=== PATIENT | male | born 1965 | race Caucasian/White ===

== ENCOUNTER 2024-01-31 17:22 | Inpatient (IN) | payer MEDICAID ==
[~2024-01-31] VITALS: Ht 185.4 cm; Wt 65.9 kg
[~2024-01-31 17:22] MED LIST: HYDR-4383 PO; rocuronium bromide 100mg/10ml (10mg/ml) injection IV ONE
[2024-01-31] MEDS: rocuronium 10mg/ml inj IV ONE (17:30)
[2024-01-31] MEDS: etomidate 2mg/ml inj. IV ONE (17:30)
[2024-01-31] MEDS ORDERED: midazolam 100mg in NS 100ml 100 ML IV SCH (17:35)
[2024-01-31 17:37] LABS: BASOPHILS # (AUTO) 0.1 X10'3 (0-0.2); BASOPHILS % (AUTO) 0.5 % (0-1); EOSINOPHILS # (AUTO) 0.2 X10'3 (0-0.9); EOSINOPHILS % (AUTO) 1.3 % (0-6); HEMATOCRIT 30.6 % (42.0-52.0); HEMOGLOBIN 9.5 g/dl (14.0-17.9); LYMPHOCYTES # (AUTO) 5.2 X10'3 (1.1-4.8); MEAN CORPUSCULAR HEMOGLOBIN 29.8 PG (27.0-31.0); MONOCYTES # (AUTO) 0.8 X10'3 (0-0.9); MONOCYTES % (AUTO) 6.2 % (2-12); NEUTROPHILS # (AUTO) 7.1 X10'3 (1.8-7.7); PLATELET COUNT 288 X10'3 (140-440); RED BLOOD COUNT 3.19 X10'6 (4.70-6.10); RED CELL DISTRIBUTION WIDTH 14.1 % (11.5-14.5); WHITE BLOOD COUNT 13.4 X10'3 (4.5-11.0)
[2024-01-31] MEDS ORDERED: MIDAZOLAM IN NACL,ISO-OSMOT/PF 100 ML IV SCH (17:43)
[2024-01-31] MEDS: normal saline 1000ML IV soln IVB ONE (17:50)
[2024-01-31] MEDS: MIDAZOLAM IN NACL,ISO-OSMOT/PF 100 ML IV SCH (17:51)
[2024-01-31 17:53] VITALS: BP 172/86; PULSE 123; RESP 17; O2SAT 99
[2024-01-31] MEDS: pantoprazole 40 MG vial IV ONE (17:56)
[2024-01-31 18:00] LABS: ALBUMIN 2.4 G/DL (3.4-5.0); ANION GAP 26 (8-16); BLOOD UREA NITROGEN 43 MG/DL (7-18); BUN/CREATININE RATIO 21.7 (10.0-20.0); CALCIUM 8.7 MG/DL (8.5-10.1); CHLORIDE 101 MMOL/L (99-107); CREATININE 1.98 MG/DL (0.60-1.10); GLUCOSE 285 MG/DL (70-104); POTASSIUM 3.4 MMOL/L (3.5-5.1); PRO BRAIN NATRIURETIC PEPTIDE 93 PG/ML (0-125); SODIUM 142 MMOL/L (135-145); eCRCL 43 ML/MIN; eGFR 35 ML/MIN
[2024-01-31 18:01] LABS: APTT 31 SECONDS (22-32); INR 1.3 INR; TOTAL CELLS COUNTED 100
[2024-01-31 18:02] LABS: BURR CELLS 1+; PLATELET ESTIMATE NORMAL
[2024-01-31 18:10] LABS: ABG BASE EXCESS -23.6 mmol/L (-2.0-2.0); ABG HCO3 8.7 mmol/L (22.0-26.0); ABG OXYGEN SATURATION 98.1 % (94-97); ABG PCO2 (T) 49.1 mmHg (35.0-48.0); ABG PH (T) 6.862 (7.340-7.440); ABG PO2 (T) 215.5 mmHg (75.0-100.0); ALLEN'S TEST POSITIVE; FCOHb 0.2 % (0.0-3.9); FHHb 1.9 % (0.0-5.0); FMetHb 0.7 % (0.0-1.5); FO2Hb 97.2 % (94-97); MODE VENT - PRVC; PATIENT TEMPERATURE 36.2; PEEP 5 cm H2O; RESPIRATORY RATE 18 b/min; TIDAL VOLUME 450 mL; TOTAL HEMOGLOBIN 8.2 G/dl (14.0-17.9)
[2024-01-31] MEDS ORDERED: propofol 1000mg/100ml bottle 100 ML IV PRN (18:10)
[2024-01-31 18:12] LABS: BILIRUBIN,URINE NEGATIVE (Neg); CLARITY,URINE CLOUDY (Clear); COLOR,URINE AMBER (Yellow); GLUCOSE, URINE NEGATIVE (Neg); KETONES,URINE NEGATIVE (Neg); LEUKOCYTE ESTERASE ,URINE NEGATIVE (Neg); NITRITES, URINE NEGATIVE (Neg); OCCULT BLOOD,URINE LARGE (Neg); PROTEIN,URINE TRACE mg/dl (Neg); UROBILINOGEN,URINE 0.2 E.U/dL (0.2-1.0)
[2024-01-31] MEDS: propofol 1000mg/100ml bottle 100 ML IV PRN (18:12)
[2024-01-31] MEDS ORDERED: iohexol 350MG/ML 100ml bottle IV ONE (18:20)
[2024-01-31 18:21] LABS: UA COLLECTION TYPE NON-SPECIFIED
[2024-01-31 18:29] LABS: SQUAMOUS EPITHELIAL CELL,UR FEW /LPF (FEW)
[2024-01-31 18:30] LABS: RBC,URINE TNTC /HPF (0-2)
[2024-01-31 18:32] LABS: BACTERIA,URINE FEW /HPF (Neg); WBC,URINE 0-4 /HPF (0-4)
[2024-01-31 18:40] LABS: URINE AMPHETAMINE SCREEN POSITIVE (Neg); URINE BARBITUATE SCREEN NEGATIVE (Neg); URINE BENZODIAZEPINES SCREEN NEGATIVE (Neg); URINE CANNABINOID SCREEN NEGATIVE (Neg); URINE COCAINE SCREEN NEGATIVE (Neg); URINE METHADONE SCREEN NEGATIVE (Neg); URINE OPIATE SCREEN NEGATIVE (Neg); URINE PHENCYCLIDINE SCREEN NEGATIVE (Neg)
[2024-01-31] MEDS ORDERED: pantoprazole 40 MG vial IV ONE (18:40)
[2024-01-31] MEDS: normal saline 1000ML IV soln IV ONE (18:40)
[2024-01-31 19:21] VITALS: BP 124/66; PULSE 131; RESP 22; O2SAT 98
[2024-01-31] MEDS: sodium bicarbonate (8.4%) 1 mEq/ml syringe IV ONE (19:27)
[2024-01-31] MEDS: fentaNYL/PF 50MCG/1 ML 2ML syringe IV PRN (19:32)
[2024-01-31 19:46] LABS: ALANINE AMINOTRANSFERASE 79 U/L (12-78); ALBUMIN 2.2 G/DL (3.4-5.0); ALBUMIN/GLOBULIN RATIO 0.9 (1.1-1.5); ALKALINE PHOSPHATASE 82 IU/L (46-116); ANION GAP 13 (8-16); ASPARTATE AMINO TRANSFERASE 89 U/L (10-37); BILIRUBIN,TOTAL 0.3 MG/DL (0.1-1.0); BLOOD UREA NITROGEN 43 MG/DL (7-18); BUN/CREATININE RATIO 22.6 (10.0-20.0); CALCIUM 7.2 MG/DL (8.5-10.1); CHLORIDE 102 MMOL/L (99-107); GLUCOSE 283 MG/DL (70-104); POTASSIUM 3.5 MMOL/L (3.5-5.1); SODIUM 138 MMOL/L (135-145); TOTAL CARBON DIOXIDE 23.4 MMOL/L (24-32); TOTAL PROTEIN 4.6 G/DL (6.4-8.2); eCRCL 45 ML/MIN; eGFR 37 ML/MIN
[2024-01-31 19:49] LABS: LIPASE 22 U/L (16-77)
[2024-01-31] MEDS: NORepinephrine 8mg/ 250ml NS 250 ML IV SCH (20:25)
[2024-01-31 21:02] VITALS: BP 157/100; PULSE 92; RESP 21; O2SAT 100
[2024-01-31] MEDS: octreotide inj. 1,250 MCG in normal saline 250ml IV soln 243.75 ML IV ONE (21:06)
[2024-01-31 21:07] LABS: BASOPHILS # (AUTO) 0.2 X10'3 (0-0.2); EOSINOPHILS # (AUTO) 0.1 X10'3 (0-0.9); EOSINOPHILS % (AUTO) 0.4 % (0-6); HEMATOCRIT 26.7 % (42.0-52.0); HEMOGLOBIN 8.7 g/dl (14.0-17.9); LYMPHOCYTES # (AUTO) 1.8 X10'3 (1.1-4.8); LYMPHOCYTES % (AUTO) 8.6 % (21-51); MEAN CORPUSCULAR HEMOGLOBIN 29.7 PG (27.0-31.0); MEAN CORPUSCULAR HGB CONC 32.8 g/dL (33.0-36.5); MEAN CORPUSCULAR VOLUME 90.5 FL (78-98); MEAN PLATELET VOLUME 8.2 FL (7.4-10.4); MONOCYTES # (AUTO) 0.3 X10'3 (0-0.9); MONOCYTES % (AUTO) 1.4 % (2-12); NEUTROPHILS # (AUTO) 18.7 X10'3 (1.8-7.7); NEUTROPHILS % (AUTO) 88.6 % (42-75); PLATELET COUNT 305 X10'3 (140-440); RED BLOOD COUNT 2.94 X10'6 (4.70-6.10); RED CELL DISTRIBUTION WIDTH 13.4 % (11.5-14.5); WHITE BLOOD COUNT 21.1 X10'3 (4.5-11.0)
[2024-01-31] MEDS: CefTRIAXone/D5W-Rocephin 1gm 50 ML IV ONE (21:08)
[2024-01-31 23:13] VITALS: BP 99/65; PULSE 93; RESP 22; O2SAT 99
[2024-01-31 23:45] LABS: BASOPHILS % (AUTO) 0.1 % (0-1); EOSINOPHILS % (AUTO) 0.1 % (0-6); HEMATOCRIT 34.9 % (42.0-52.0); HEMOGLOBIN 11.6 g/dl (14.0-17.9); LYMPHOCYTES # (AUTO) 1.7 X10'3 (1.1-4.8); LYMPHOCYTES % (AUTO) 6.7 % (21-51); MEAN CORPUSCULAR HEMOGLOBIN 29.1 PG (27.0-31.0); MEAN CORPUSCULAR HGB CONC 33.2 g/dL (33.0-36.5); MEAN CORPUSCULAR VOLUME 87.8 FL (78-98); MEAN PLATELET VOLUME 7.5 FL (7.4-10.4); MONOCYTES # (AUTO) 2.1 X10'3 (0-0.9); MONOCYTES % (AUTO) 8.3 % (2-12); NEUTROPHILS # (AUTO) 21.8 X10'3 (1.8-7.7); NEUTROPHILS % (AUTO) 84.8 % (42-75); PLATELET COUNT 225 X10'3 (140-440); RED BLOOD COUNT 3.97 X10'6 (4.70-6.10); RED CELL DISTRIBUTION WIDTH 13.8 % (11.5-14.5)
[2024-01-31 23:48] LABS: WHITE BLOOD COUNT 25.7 X10'3 (4.5-11.0)
[2024-02-01] VITALS (33 sets, daily range): BP systolic 93–121; BP diastolic 48–75; PULSE 75–92; RESP 7–20; O2SAT 96–100
[2024-02-01 00:14] LABS: TOTAL CELLS COUNTED 100
[2024-02-01 00:16] LABS: PLATELET ESTIMATE NORMAL
[2024-02-01 00:17] LABS: BURR CELLS FEW
[2024-02-01 02:02] LABS: BASOPHILS % (AUTO) 0.1 % (0-1); EOSINOPHILS % (AUTO) 0.1 % (0-6); HEMATOCRIT 39.1 % (42.0-52.0); HEMOGLOBIN 12.7 g/dl (14.0-17.9); LYMPHOCYTES # (AUTO) 2.3 X10'3 (1.1-4.8); MEAN CORPUSCULAR HEMOGLOBIN 29.3 PG (27.0-31.0); MEAN CORPUSCULAR HGB CONC 32.5 g/dL (33.0-36.5); MEAN CORPUSCULAR VOLUME 90.2 FL (78-98); MEAN PLATELET VOLUME 7.4 FL (7.4-10.4); MONOCYTES # (AUTO) 2.1 X10'3 (0-0.9); MONOCYTES % (AUTO) 7.3 % (2-12); NEUTROPHILS # (AUTO) 24.1 X10'3 (1.8-7.7); NEUTROPHILS % (AUTO) 84.5 % (42-75); PLATELET COUNT 209 X10'3 (140-440); RED BLOOD COUNT 4.33 X10'6 (4.70-6.10); RED CELL DISTRIBUTION WIDTH 14.4 % (11.5-14.5)
[2024-02-01 02:06] LABS: WHITE BLOOD COUNT 28.5 X10'3 (4.5-11.0)
[2024-02-01] MEDS ORDERED: ondansetron/PF 4mg/2ml inj IV PRN (02:20)
[2024-02-01] MEDS ORDERED: acetaminophen 325mg tablet PO PRN (02:20)
[2024-02-01] MEDS ORDERED: magnesium hydroxide 30ml (MOM) UD suspension PO PRN (02:20)
[2024-02-01 02:32] LABS: ALBUMIN 2.7 G/DL (3.4-5.0); ANION GAP 8 (8-16); APTT 25 SECONDS (22-32); BLOOD UREA NITROGEN 53 MG/DL (7-18); BUN/CREATININE RATIO 27.7 (10.0-20.0); CALCIUM 7.8 MG/DL (8.5-10.1); CHLORIDE 106 MMOL/L (99-107); CREATININE 1.91 MG/DL (0.60-1.10); GLUCOSE 116 MG/DL (70-104); INR 1.2 INR; PHOSPHORUS 4.3 MG/DL (2.3-4.5); POTASSIUM 4.1 MMOL/L (3.5-5.1); PROTHROMBIN TIME 12.4 SECONDS (9.0-12.0); SODIUM 140 MMOL/L (135-145); TOTAL CARBON DIOXIDE 25.8 MMOL/L (24-32); eCRCL 44 ML/MIN; eGFR 37 ML/MIN
[2024-02-01 02:33] LABS: TOTAL CELLS COUNTED 100
[2024-02-01 02:34] LABS: BURR CELLS FEW; PLATELET ESTIMATE NORMAL
[2024-02-01 02:56] LABS: THYROID STIMULATING HORMONE 0.75 ulU/ml (0.34-4.50)
[2024-02-01 03:15] LABS: D-DIMER 31.55 MG/L FEU (0-0.50)
[2024-02-01 03:20] LABS: FIBRINOGEN 190 MG/DL (177-424)
[2024-02-01] MEDS: ringers solution, lacted 1,000 ML IV ONE (03:27)
[2024-02-01] MEDS: ringers solution, lacted 1,000 ML IV SCH (03:28)
[2024-02-01 04:13] LABS: OXYGEN SATURATION (MIXED VEN) 62.6 % (60-80); PO2 MIXED VENOUS (TEMP COR) 32.1 mmHg (35-46)
[2024-02-01 04:23] LABS: ABG BASE EXCESS 0.4 mmol/L (-2.0-2.0); ABG HCO3 25.1 mmol/L (22.0-26.0); ABG OXYGEN SATURATION 97.3 % (94-97); ABG PH (T) 7.422 (7.340-7.440); ABG PO2 (T) 112.1 mmHg (75.0-100.0); ALLEN'S TEST POSITIVE; FCOHb 0.2 % (0.0-3.9); FHHb 2.7 % (0.0-5.0); FMetHb 0.1 % (0.0-1.5); MODE cmv prvc it 0.7; PATIENT TEMPERATURE 36.1; PEEP 5 cm H2O; RESPIRATORY RATE 16 b/min; TIDAL VOLUME 450 mL; TOTAL HEMOGLOBIN 11.6 G/dl (14.0-17.9)
[2024-02-01] MEDS ORDERED: epiNEPHrine 0.1mg/ml 10ml syringe ONE (06:56)
[2024-02-01] MEDS ORDERED: heparin 10,000 units/1 ML INJ IV PRN (08:45)
[2024-02-01] MEDS: pantoprazole 40MG/NS 100ML BAG 100 ML IV SCH ×2 (09:04→21:15)
[2024-02-01] MEDS: MESSAGE TO NURSING IV ONE ×3 (09:05→23:16)
[2024-02-01] MEDS: heparin 10,000 units/1 ML INJ IV ONE (10:10)
[2024-02-01] MEDS: heparin 25,000 UNIT/250ml bag 250 ML IV PRN (10:22)
[2024-02-01] MEDS ORDERED: NO HOME MEDS (11:18)
[2024-02-01 17:17] LABS: APTT 51 SECONDS (22-32)
[2024-02-01 17:40] LABS: BASOPHILS % (AUTO) 0.2 % (0-1); EOSINOPHILS # (AUTO) 0.1 X10'3 (0-0.9); EOSINOPHILS % (AUTO) 1.2 % (0-6); HEMATOCRIT 30.4 % (42.0-52.0); LYMPHOCYTES # (AUTO) 1.3 X10'3 (1.1-4.8); LYMPHOCYTES % (AUTO) 11.2 % (21-51); MEAN CORPUSCULAR HEMOGLOBIN 29.3 PG (27.0-31.0); MEAN CORPUSCULAR VOLUME 88.8 FL (78-98); MEAN PLATELET VOLUME 8.5 FL (7.4-10.4); MONOCYTES # (AUTO) 0.9 X10'3 (0-0.9); MONOCYTES % (AUTO) 7.8 % (2-12); NEUTROPHILS # (AUTO) 9.3 X10'3 (1.8-7.7); NEUTROPHILS % (AUTO) 79.6 % (42-75); PLATELET COUNT 174 X10'3 (140-440); RED BLOOD COUNT 3.42 X10'6 (4.70-6.10); RED CELL DISTRIBUTION WIDTH 14.1 % (11.5-14.5); WHITE BLOOD COUNT 11.7 X10'3 (4.5-11.0)
[2024-02-01 20:35] LABS: BASOPHILS % (AUTO) 0.3 % (0-1); EOSINOPHILS # (AUTO) 0.1 X10'3 (0-0.9); EOSINOPHILS % (AUTO) 0.9 % (0-6); HEMATOCRIT 27.4 % (42.0-52.0); LYMPHOCYTES # (AUTO) 1.4 X10'3 (1.1-4.8); LYMPHOCYTES % (AUTO) 11.4 % (21-51); MEAN CORPUSCULAR HEMOGLOBIN 29.4 PG (27.0-31.0); MEAN CORPUSCULAR HGB CONC 32.8 g/dL (33.0-36.5); MEAN CORPUSCULAR VOLUME 89.8 FL (78-98); MEAN PLATELET VOLUME 7.8 FL (7.4-10.4); MONOCYTES # (AUTO) 0.8 X10'3 (0-0.9); MONOCYTES % (AUTO) 6.6 % (2-12); NEUTROPHILS # (AUTO) 9.6 X10'3 (1.8-7.7); NEUTROPHILS % (AUTO) 80.8 % (42-75); PLATELET COUNT 137 X10'3 (140-440); RED BLOOD COUNT 3.05 X10'6 (4.70-6.10); RED CELL DISTRIBUTION WIDTH 14.5 % (11.5-14.5); WHITE BLOOD COUNT 11.8 X10'3 (4.5-11.0)
[2024-02-01] MEDS: diatr meglu/diatrizoate 30ml oral sol.-(3 dose) bottle PO SCH (21:00)
[2024-02-01 22:32] LABS: APTT 67 SECONDS (22-32)
[2024-02-02] VITALS (24 sets, daily range): BP systolic 92–133; BP diastolic 50–68; PULSE 7–84; RESP 11–19; TEMP 97.5–98.1; O2SAT 94–100
[2024-02-02 03:36] LABS: BASOPHILS % (AUTO) 0.2 % (0-1); EOSINOPHILS # (AUTO) 0.3 X10'3 (0-0.9); EOSINOPHILS % (AUTO) 2.5 % (0-6); HEMOGLOBIN 8.2 g/dl (14.0-17.9); LYMPHOCYTES % (AUTO) 19.4 % (21-51); MEAN CORPUSCULAR HEMOGLOBIN 29.1 PG (27.0-31.0); MEAN CORPUSCULAR HGB CONC 32.6 g/dL (33.0-36.5); MEAN CORPUSCULAR VOLUME 89.1 FL (78-98); MONOCYTES # (AUTO) 0.7 X10'3 (0-0.9); MONOCYTES % (AUTO) 6.9 % (2-12); NEUTROPHILS # (AUTO) 7.4 X10'3 (1.8-7.7); PLATELET COUNT 132 X10'3 (140-440); RED CELL DISTRIBUTION WIDTH 14.1 % (11.5-14.5); WHITE BLOOD COUNT 10.4 X10'3 (4.5-11.0)
[2024-02-02 03:50] LABS: ALANINE AMINOTRANSFERASE 108 U/L (12-78); ALBUMIN/GLOBULIN RATIO 0.8 (1.1-1.5); ALKALINE PHOSPHATASE 53 IU/L (46-116); ANION GAP 4 (8-16); ASPARTATE AMINO TRANSFERASE 127 U/L (10-37); BILIRUBIN,TOTAL 0.3 MG/DL (0.1-1.0); BLOOD UREA NITROGEN 32 MG/DL (7-18); BUN/CREATININE RATIO 25.4 (10.0-20.0); CALCIUM 7.8 MG/DL (8.5-10.1); CHLORIDE 111 MMOL/L (99-107); CREATININE 1.26 MG/DL (0.60-1.10); GLUCOSE 105 MG/DL (70-104); POTASSIUM 3.8 MMOL/L (3.5-5.1); SODIUM 146 MMOL/L (135-145); TOTAL CARBON DIOXIDE 30.6 MMOL/L (24-32); TOTAL PROTEIN 4.6 G/DL (6.4-8.2); eCRCL 61 ML/MIN; eGFR 59 ML/MIN
[2024-02-02 03:51] LABS: APTT 57 SECONDS (22-32)
[2024-02-02] MEDS: morphine 2 MG/ML inj. syringe IV PRN (04:20)
[2024-02-02] MEDS: MESSAGE TO NURSING IV ONE (05:49)
[2024-02-02] MEDS ORDERED: calcium gluconate inj. 2 GM in normal saline 100ml IV soln 100 ML IV ONE (06:45)
[2024-02-02] MEDS: CALCIUM GLUC 1gm/50ml NACL,iso 50 ML IV SCH (07:29)
[2024-02-02] MEDS: enoxaparin 100mg/ml syringe SUBCUT ONE (09:25)
[2024-02-02] MEDS: COMMUNICATION ORDER 1 EA MISC MC ONE (11:17)
[2024-02-02] MEDS: nicotine 21mg patch - 24 hr TD SCH (11:21)
[2024-02-02] MEDS: acetaminophen 325mg tablet PO PRN (12:10)
[2024-02-02 15:05] LABS: BASOPHILS % (AUTO) 0.1 % (0-1); EOSINOPHILS # (AUTO) 0.3 X10'3 (0-0.9); EOSINOPHILS % (AUTO) 2.3 % (0-6); HEMATOCRIT 26.8 % (42.0-52.0); LYMPHOCYTES # (AUTO) 1.9 X10'3 (1.1-4.8); LYMPHOCYTES % (AUTO) 16.4 % (21-51); MEAN CORPUSCULAR HEMOGLOBIN 29.5 PG (27.0-31.0); MEAN CORPUSCULAR HGB CONC 33.5 g/dL (33.0-36.5); MEAN CORPUSCULAR VOLUME 88.2 FL (78-98); MEAN PLATELET VOLUME 7.6 FL (7.4-10.4); MONOCYTES # (AUTO) 0.6 X10'3 (0-0.9); MONOCYTES % (AUTO) 5.2 % (2-12); NEUTROPHILS # (AUTO) 8.8 X10'3 (1.8-7.7); PLATELET COUNT 124 X10'3 (140-440); RED BLOOD COUNT 3.04 X10'6 (4.70-6.10); RED CELL DISTRIBUTION WIDTH 14.4 % (11.5-14.5); WHITE BLOOD COUNT 11.6 X10'3 (4.5-11.0)
[2024-02-02 15:11] LABS: APTT 30 SECONDS (22-32)
[2024-02-02] MEDS: morphine 4 MG/ML inj SYRINge IV PRN (19:17)
[2024-02-02] MEDS: enoxaparin 30mg/0.3ml syringe SUBCUT SCH (19:25)
[2024-02-03] VITALS (15 sets, daily range): BP systolic 113–136; BP diastolic 62–77; PULSE 60–77; RESP 14–19; TEMP 97.8–98.5; O2SAT 94–98
[2024-02-03 06:55] LABS: APTT 30 SECONDS (22-32)
[2024-02-03 06:59] LABS: BASOPHILS % (AUTO) 0.3 % (0-1); EOSINOPHILS # (AUTO) 0.4 X10'3 (0-0.9); EOSINOPHILS % (AUTO) 3.5 % (0-6); HEMATOCRIT 27.1 % (42.0-52.0); LYMPHOCYTES # (AUTO) 2.2 X10'3 (1.1-4.8); LYMPHOCYTES % (AUTO) 21.7 % (21-51); MEAN CORPUSCULAR HEMOGLOBIN 29.5 PG (27.0-31.0); MEAN CORPUSCULAR HGB CONC 33.3 g/dL (33.0-36.5); MEAN CORPUSCULAR VOLUME 88.6 FL (78-98); MEAN PLATELET VOLUME 7.7 FL (7.4-10.4); MONOCYTES # (AUTO) 0.4 X10'3 (0-0.9); MONOCYTES % (AUTO) 3.9 % (2-12); NEUTROPHILS # (AUTO) 7.2 X10'3 (1.8-7.7); NEUTROPHILS % (AUTO) 70.6 % (42-75); PLATELET COUNT 138 X10'3 (140-440); RED BLOOD COUNT 3.06 X10'6 (4.70-6.10); RED CELL DISTRIBUTION WIDTH 14.7 % (11.5-14.5); WHITE BLOOD COUNT 10.2 X10'3 (4.5-11.0)
[2024-02-03 07:12] LABS: ALANINE AMINOTRANSFERASE 97 U/L (12-78); ALBUMIN/GLOBULIN RATIO 0.7 (1.1-1.5); ALKALINE PHOSPHATASE 56 IU/L (46-116); ANION GAP 3 (8-16); ASPARTATE AMINO TRANSFERASE 89 U/L (10-37); BILIRUBIN,TOTAL 0.2 MG/DL (0.1-1.0); BLOOD UREA NITROGEN 21 MG/DL (7-18); BUN/CREATININE RATIO 20.8 (10.0-20.0); CALCIUM 8.1 MG/DL (8.5-10.1); CHLORIDE 107 MMOL/L (99-107); CREATININE 1.01 MG/DL (0.60-1.10); GLUCOSE 108 MG/DL (70-104); POTASSIUM 3.3 MMOL/L (3.5-5.1); SODIUM 138 MMOL/L (135-145); TOTAL CARBON DIOXIDE 28.3 MMOL/L (24-32); TOTAL PROTEIN 4.9 G/DL (6.4-8.2); eCRCL 76 ML/MIN; eGFR 76 ML/MIN
[2024-02-03] MEDS ORDERED: magnesium sulf-water 4G/100mL 100 ML IV PRN (07:30)
[2024-02-03] MEDS ORDERED: magnesium Cl slow-release 64mg tablet PO PRN (07:30)
[2024-02-03] MEDS ORDERED: potassium Cl 40MEQ/1/2NS 520ml 520 ML IV PRN (07:30)
[2024-02-03] MEDS ORDERED: magnesium sulf-water 2g/50mL 50 ML IV PRN (07:30)
[2024-02-03] MEDS ORDERED: potassium Cl 20 mEq SR tablet PO PRN (07:30)
[2024-02-03] MEDS: potassium Cl 20 mEq SR tablet PO PRN (07:43)
[2024-02-03] MEDS: pantoprazole 40 MG vial IV SCH (07:44)
[2024-02-03] MEDS: K and/or MAG REPLACEMENT MC SCH (07:46)
[2024-02-03 10:43] LABS: BASOPHILS % (AUTO) 0.2 % (0-1); EOSINOPHILS # (AUTO) 0.2 X10'3 (0-0.9); EOSINOPHILS % (AUTO) 2.2 % (0-6); HEMATOCRIT 25.9 % (42.0-52.0); HEMOGLOBIN 8.6 g/dl (14.0-17.9); LYMPHOCYTES # (AUTO) 1.7 X10'3 (1.1-4.8); LYMPHOCYTES % (AUTO) 17.9 % (21-51); MEAN CORPUSCULAR HEMOGLOBIN 29.3 PG (27.0-31.0); MEAN CORPUSCULAR HGB CONC 33.2 g/dL (33.0-36.5); MEAN CORPUSCULAR VOLUME 88.1 FL (78-98); MEAN PLATELET VOLUME 7.7 FL (7.4-10.4); MONOCYTES # (AUTO) 0.4 X10'3 (0-0.9); MONOCYTES % (AUTO) 4.1 % (2-12); NEUTROPHILS % (AUTO) 75.6 % (42-75); PLATELET COUNT 135 X10'3 (140-440); RED BLOOD COUNT 2.94 X10'6 (4.70-6.10); RED CELL DISTRIBUTION WIDTH 14.2 % (11.5-14.5); WHITE BLOOD COUNT 9.2 X10'3 (4.5-11.0)
[2024-02-03 10:45] LABS: APTT 33 SECONDS (22-32)
[2024-02-03] MEDS: ipratropium/albuterol 3ml nebule NEB PRN (15:14)
[2024-02-03] MEDS ORDERED: albuterol 2.5 MG/3 ML nebule NEB PRN (15:15)
[2024-02-03 15:41] LABS: PRO BRAIN NATRIURETIC PEPTIDE 238 PG/ML (0-125)
[2024-02-03] MEDS: ipratropium/albuterol 3ml nebule NEB SCH (16:00)
[2024-02-03] MEDS: piperacillin/tazo 4.5gm/100ml 100 ML IV SCH (17:10)
[2024-02-03] MEDS: budesonide 0.5mg/2ml UD nebule IH SCH (19:15)
[2024-02-03 19:49] LABS: BASOPHILS % (AUTO) 0.3 % (0-1); EOSINOPHILS # (AUTO) 0.2 X10'3 (0-0.9); EOSINOPHILS % (AUTO) 2.3 % (0-6); HEMATOCRIT 27.1 % (42.0-52.0); HEMOGLOBIN 9.1 g/dl (14.0-17.9); LYMPHOCYTES # (AUTO) 2.1 X10'3 (1.1-4.8); LYMPHOCYTES % (AUTO) 21.7 % (21-51); MEAN CORPUSCULAR HEMOGLOBIN 29.6 PG (27.0-31.0); MEAN CORPUSCULAR HGB CONC 33.4 g/dL (33.0-36.5); MEAN CORPUSCULAR VOLUME 88.5 FL (78-98); MEAN PLATELET VOLUME 7.7 FL (7.4-10.4); MONOCYTES # (AUTO) 0.5 X10'3 (0-0.9); MONOCYTES % (AUTO) 5.2 % (2-12); NEUTROPHILS # (AUTO) 6.8 X10'3 (1.8-7.7); NEUTROPHILS % (AUTO) 70.5 % (42-75); PLATELET COUNT 152 X10'3 (140-440); RED BLOOD COUNT 3.07 X10'6 (4.70-6.10); RED CELL DISTRIBUTION WIDTH 14.5 % (11.5-14.5); WHITE BLOOD COUNT 9.6 X10'3 (4.5-11.0)
[2024-02-03 20:01] LABS: APTT 30 SECONDS (22-32)
[2024-02-03] MEDS: apixaban 5mg tablet PO SCH (20:22)
[2024-02-04] VITALS (19 sets, daily range): BP systolic 126–151; BP diastolic 77–83; PULSE 58–88; RESP 12–24; TEMP 97.4–99.2; O2SAT 94–97
[2024-02-04 06:56] LABS: BASOPHILS % (AUTO) 0.2 % (0-1); EOSINOPHILS # (AUTO) 0.2 X10'3 (0-0.9); EOSINOPHILS % (AUTO) 2.8 % (0-6); HEMATOCRIT 28.6 % (42.0-52.0); HEMOGLOBIN 9.5 g/dl (14.0-17.9); LYMPHOCYTES # (AUTO) 1.7 X10'3 (1.1-4.8); LYMPHOCYTES % (AUTO) 19.4 % (21-51); MEAN CORPUSCULAR HEMOGLOBIN 29.7 PG (27.0-31.0); MEAN CORPUSCULAR HGB CONC 33.2 g/dL (33.0-36.5); MEAN CORPUSCULAR VOLUME 89.5 FL (78-98); MEAN PLATELET VOLUME 7.7 FL (7.4-10.4); MONOCYTES # (AUTO) 0.5 X10'3 (0-0.9); MONOCYTES % (AUTO) 6.2 % (2-12); NEUTROPHILS # (AUTO) 6.3 X10'3 (1.8-7.7); NEUTROPHILS % (AUTO) 71.4 % (42-75); PLATELET COUNT 170 X10'3 (140-440); RED CELL DISTRIBUTION WIDTH 14.6 % (11.5-14.5); WHITE BLOOD COUNT 8.8 X10'3 (4.5-11.0)
[2024-02-04 07:50] LABS: ALANINE AMINOTRANSFERASE 105 U/L (12-78); ALBUMIN 2.3 G/DL (3.4-5.0); ALBUMIN/GLOBULIN RATIO 0.7 (1.1-1.5); ALKALINE PHOSPHATASE 85 IU/L (46-116); ANION GAP 4 (8-16); ASPARTATE AMINO TRANSFERASE 74 U/L (10-37); BILIRUBIN,TOTAL 0.3 MG/DL (0.1-1.0); BLOOD UREA NITROGEN 13 MG/DL (7-18); BUN/CREATININE RATIO 13.7 (10.0-20.0); CALCIUM 8.3 MG/DL (8.5-10.1); CHLORIDE 105 MMOL/L (99-107); CREATININE 0.95 MG/DL (0.60-1.10); GLUCOSE 95 MG/DL (70-104); POTASSIUM 3.5 MMOL/L (3.5-5.1); SODIUM 137 MMOL/L (135-145); TOTAL PROTEIN 5.5 G/DL (6.4-8.2); eCRCL 81 ML/MIN; eGFR 82 ML/MIN
[2024-02-04] MEDS: HYDROcodone/acetaminophen 10/325mg tab PO PRN (13:38)
[2024-02-04] MEDS: LIDOcaine/PRILOcaine 5gm cream TP PRN (16:52)
[2024-02-04] MEDS: HYDROcodone/acetaminophen 5mg/325mg tablet PO PRN (22:28)
[2024-02-05] VITALS (10 sets, daily range): BP systolic 121–125; BP diastolic 55–77; PULSE 72–94; RESP 13–20; TEMP 97.8–98.8; O2SAT 94–99
[2024-02-05 07:22] LABS: BASOPHILS % (AUTO) 0.2 % (0-1); EOSINOPHILS # (AUTO) 0.3 X10'3 (0-0.9); EOSINOPHILS % (AUTO) 3.7 % (0-6); HEMATOCRIT 30.3 % (42.0-52.0); HEMOGLOBIN 10.2 g/dl (14.0-17.9); LYMPHOCYTES # (AUTO) 1.6 X10'3 (1.1-4.8); LYMPHOCYTES % (AUTO) 18.4 % (21-51); MEAN CORPUSCULAR HEMOGLOBIN 30.2 PG (27.0-31.0); MEAN CORPUSCULAR HGB CONC 33.8 g/dL (33.0-36.5); MEAN CORPUSCULAR VOLUME 89.3 FL (78-98); MEAN PLATELET VOLUME 7.6 FL (7.4-10.4); MONOCYTES # (AUTO) 0.6 X10'3 (0-0.9); MONOCYTES % (AUTO) 7.4 % (2-12); NEUTROPHILS # (AUTO) 6.1 X10'3 (1.8-7.7); NEUTROPHILS % (AUTO) 70.3 % (42-75); PLATELET COUNT 230 X10'3 (140-440); RED BLOOD COUNT 3.39 X10'6 (4.70-6.10); RED CELL DISTRIBUTION WIDTH 14.2 % (11.5-14.5); WHITE BLOOD COUNT 8.6 X10'3 (4.5-11.0)
[2024-02-05 07:31] LABS: APTT 29 SECONDS (22-32)
[2024-02-05 08:02] LABS: ALANINE AMINOTRANSFERASE 120 U/L (12-78); ALBUMIN 2.3 G/DL (3.4-5.0); ALBUMIN/GLOBULIN RATIO 0.7 (1.1-1.5); ALKALINE PHOSPHATASE 110 IU/L (46-116); ANION GAP 3 (8-16); ASPARTATE AMINO TRANSFERASE 75 U/L (10-37); BILIRUBIN,TOTAL 0.2 MG/DL (0.1-1.0); BLOOD UREA NITROGEN 17 MG/DL (7-18); CALCIUM 8.5 MG/DL (8.5-10.1); CHLORIDE 103 MMOL/L (99-107); GLUCOSE 93 MG/DL (70-104); POTASSIUM 3.7 MMOL/L (3.5-5.1); SODIUM 137 MMOL/L (135-145); TOTAL CARBON DIOXIDE 31.4 MMOL/L (24-32); TOTAL PROTEIN 5.6 G/DL (6.4-8.2); eCRCL 77 ML/MIN; eGFR 77 ML/MIN
[2024-02-05 10:11] LABS: APTT 27 SECONDS (22-32)
[2024-02-05] MEDS ORDERED: NICO-687 TD (11:31)
[2024-02-05] MEDS ORDERED: LIDO30CR TP (11:31)
[2024-02-05] MEDS ORDERED: APIX5TAB3 PO (11:31)
[2024-02-05] MEDS ORDERED: AMOX500C2 PO (11:38)
[2024-02-05] MEDS ORDERED: CLAR-69 PO (11:38)
[2024-02-05] MEDS ORDERED: OMEP20CA15 PO (11:38)
== END 2024-02-05 13:24 | disposition home or self-care (01) | DRG 241 ==
LOC: ER 17:23 → EDBD 17:23 → ED HOLD 02-01 02:23 → CICU 2S 02-01 06:27 → PCU 3S 02-02 15:22
PROVIDERS: ADMIT Internal Medicine Critical Care Medicine; ATTEND Internal Medicine Critical Care Medicine
PROC: 5A1935Z Respiratory Ventilation, Less than 24 Consecutive Hours (ICD-10-PCS; 2024-01-31)
PROC: 0BH17EZ Insertion of Endotracheal Airway into Trachea, Via Natural or Artificial Opening (ICD-10-PCS; 2024-01-31)
PROC: 5A12012 Performance of Cardiac Output, Single, Manual (ICD-10-PCS; 2024-02-01)
PROC: BW211ZZ Computerized Tomography (CT Scan) of Abdomen and Pelvis using Low Osmolar Contrast (ICD-10-PCS; 2024-02-01)
PROC: 0DB78ZX Excision of Stomach, Pylorus, Via Natural or Artificial Opening Endoscopic, Diagnostic (ICD-10-PCS; 2024-02-01)
PROC: 30233N1 Transfusion of Nonautologous Red Blood Cells into Peripheral Vein, Percutaneous Approach (ICD-10-PCS; principal; 2024-02-02)
DX: K26.4 Chronic or unspecified duodenal ulcer with hemorrhage (principal); I26.99 Other pulmonary embolism without acute cor pulmonale; I46.9 Cardiac arrest, cause unspecified; J96.90 Respiratory failure, unspecified, unspecified whether with hypoxia or hypercapnia; D62 Acute posthemorrhagic anemia; G92.8 Other toxic encephalopathy; R57.9 Shock, unspecified; K29.51 Unspecified chronic gastritis with bleeding; I21.A1 Myocardial infarction type 2; E87.29 Other acidosis; F15.129 Other stimulant abuse with intoxication, unspecified; N28.9 Disorder of kidney and ureter, unspecified; E87.6 Hypokalemia; R74.01 Elevation of levels of liver transaminase levels; R31.9 Hematuria, unspecified; F15.10 Other stimulant abuse, uncomplicated; N17.9 Acute kidney failure, unspecified; Z59.00 Homelessness unspecified
CPT/HCPCS: 36415; 36430; 36600; 43239; 70450; 71045; 71275; 74176; 76700; 80048; 80053; 80069; 80305; 81001; 82570; 82803; 82810; 82948; 83605; 83690; 83880; 83930; 84133; 84145; 84300; 84443; 84484; 84540; 85007; 85018; 85025; 85379; 85384; 85610; 85730; 86885; 86900; 86901; 86920; 87040; 87081; 87811; 93005; 93306; 93970; 93975; 94002; 94003; 94640; 94760; 94799; 96365; 96367; 96375; 97116; 97162; 99291; A4615; A6449; C1751; G0378; J0171; J0610; J0696; J1644; J1650; J2270; J2354; J2470; J2543; J2704; J3010; J3490; J7030; J7040; J7050; J7120; P9016; Q9963; Q9967